=== PATIENT | female | born 1975 | race Caucasian/White ===

== ENCOUNTER 2020-12-11 11:10 | Emergency (ER) | payer MEDICAID ==
[~2020-12-11] VITALS: Ht 165.1 cm; Wt 80.0 kg
[2020-12-11] MEDS ORDERED: ipratropium 0.5 MG/2.5ML nebule IH ONE (11:30)
[2020-12-11] MEDS ORDERED: methylPREDNISolone sod succ 125mg/2ml vial IV ONE (11:30)
[2020-12-11] MEDS ORDERED: magnesium 2GM in 50ml NS 50 ML IV ONE (11:30)
[2020-12-11] MEDS ORDERED: normal saline 1000ML IV soln IVB ONE (11:30)
[2020-12-11] MEDS ORDERED: albuterol 2.5 MG/3 ML nebule NEB ONE ×2 (11:30→12:50)
[2020-12-11] MEDS ORDERED: albuterol 2.5 MG/3 ML nebule CONTNEB PRN ×2 (11:30→12:50)
[2020-12-11] MEDS ORDERED: methylPREDNISolone sod succ 125mg/2ml vial ONE (11:51)
[2020-12-11 12:24] LABS: BASOPHILS % (AUTO) 0.5 % (0-1); EOSINOPHILS # (AUTO) 0.7 X10'3 (0-0.9); EOSINOPHILS % (AUTO) 8.3 % (0-6); HEMATOCRIT 39.8 % (35.0-45.0); HEMOGLOBIN 13.7 g/dl (12.0-16.0); LYMPHOCYTES # (AUTO) 2.6 X10'3 (1.1-4.8); LYMPHOCYTES % (AUTO) 32.5 % (21-51); MEAN CORPUSCULAR HEMOGLOBIN 29.8 PG (27.0-31.0); MEAN CORPUSCULAR HGB CONC 34.5 g/dL (33.0-36.5); MEAN CORPUSCULAR VOLUME 86.4 FL (78-98); MEAN PLATELET VOLUME 9.1 FL (7.4-10.4); MONOCYTES # (AUTO) 0.6 X10'3 (0-0.9); MONOCYTES % (AUTO) 7.7 % (2-12); NEUTROPHILS # (AUTO) 4.1 X10'3 (1.8-7.7); PLATELET COUNT 304 X10'3 (140-440); RED BLOOD COUNT 4.61 X10'6 (4.20-5.60); RED CELL DISTRIBUTION WIDTH 13.4 % (11.5-14.5)
[2020-12-11 12:33] LABS: ALANINE AMINOTRANSFERASE 22 U/L (12-78); ALBUMIN 4.1 G/DL (3.4-5.0); ALBUMIN/GLOBULIN RATIO 1.1 (1.1-1.5); ALKALINE PHOSPHATASE 96 IU/L (46-116); ANION GAP 15 (8-16); ASPARTATE AMINO TRANSFERASE 20 U/L (10-37); BILIRUBIN,TOTAL 0.5 MG/DL (0.1-1.0); BLOOD UREA NITROGEN 15 MG/DL (7-18); CALCIUM 9.3 MG/DL (8.5-10.1); CHLORIDE 106 MMOL/L (99-107); GLUCOSE 82 MG/DL (70-104); SODIUM 145 MMOL/L (135-145); TOTAL CARBON DIOXIDE 24.5 MMOL/L (24-32)
[2020-12-11 12:36] LABS: BUN/CREATININE RATIO 16.3 (6.6-38.0); CREATININE 0.92 MG/DL (0.40-0.90); eGFR 65 ML/MIN
--- NOTE | 2020-12-11 12:36 | NUR ---
PT FINISHING CONT NEB AT THIS TIME, REPORTS FEELING MUCH BETTER. AIR MVMT TO ALL LUNG MCCLELLAN, STILL WITH BASILAR WHEEZING. RT WILL BE BACK SOON TO REASSESS PER PHONE CALL WITH RT MARLENE
--- NOTE | 2020-12-11 12:56 | NUR ---
RT AT BEDSIDE
[2020-12-11] MEDS ORDERED: ALBU18HF2 INH (14:01)
[2020-12-11] MEDS ORDERED: FLO44IN IH (14:01)
[2020-12-11] MEDS ORDERED: PRED20TA PO (14:01)
[2020-12-11 14:36] VITALS: BP 109/65
== END 2020-12-11 14:39 | disposition home or self-care (01) ==
LOC: ER 11:11
DX: J45.901 Unspecified asthma with (acute) exacerbation (principal)
CPT/HCPCS: 36415; 71045; 80053; 85025; 93005; 94640; 94760; 96365; 96366; 96375; 99285; A7015; J2930; J3475; J7030

== ENCOUNTER 2022-06-15 10:05 | Emergency (ER) | payer MEDICAID ==
[~2022-06-15] VITALS: Ht 157.5 cm; Wt 62.0 kg
[~2022-06-15 10:05] MED LIST: ALBU18HF2 INH; FLO44IN IH
[2022-06-15 10:14] VITALS: BP 111/67
[2022-06-15] MEDS ORDERED: LIDO20SO16 PO (11:02)
[2022-06-15] MEDS ORDERED: PENI500T2 PO (11:04)
== END 2022-06-15 11:25 | disposition home or self-care (01) ==
LOC: ER 10:06
DX: J02.0 Streptococcal pharyngitis (principal)
CPT/HCPCS: 87880; 99283

== ENCOUNTER 2022-07-15 10:15 | Emergency (ER) | payer MEDICAID ==
[~2022-07-15] VITALS: Ht 157.5 cm; Wt 64.5 kg
[~2022-07-15 10:15] MED LIST changes: +LIDO20SO16 PO; +PENI500T2 PO
[2022-07-15] MEDS ORDERED: albuterol 2.5 MG/3 ML nebule NEB ONE (10:20)
[2022-07-15] MEDS ORDERED: methylPREDNISolone sod succ 125mg/2ml vial IV ONE (10:25)
[2022-07-15] MEDS ORDERED: FLUT1BLS3 INH (11:28)
[2022-07-15] MEDS ORDERED: PRED10TA23 PO (11:28)
[2022-07-15 11:57] VITALS: BP 115/75
== END 2022-07-15 12:05 | disposition home or self-care (01) ==
LOC: ER 10:16
DX: J45.901 Unspecified asthma with (acute) exacerbation (principal); R05.9 Cough, unspecified
CPT/HCPCS: 94640; 96374; 99283; J2930

== ENCOUNTER 2022-09-03 10:49 | Emergency (ER) | payer MEDICAID ==
[~2022-09-03] VITALS: Ht 157.5 cm; Wt 65.0 kg
[~2022-09-03 10:49] MED LIST changes: +FLUT1BLS3 INH; -PENI500T2 PO
--- NOTE | 2022-09-03 11:08 | NUR ---
SBAR TO DOMINIQUE PADGETT.
[2022-09-03] MEDS ORDERED: albuterol 2.5 MG/3 ML nebule CONTNEB PRN (11:10)
[2022-09-03] MEDS ORDERED: dexamethasone sod phosphate 10mg/ml inj IM STA (11:43)
[2022-09-03] MEDS ORDERED: FLUT1BLS3 INH (11:45)
[2022-09-03] MEDS ORDERED: PRED20TA PO (11:45)
[2022-09-03] MEDS ORDERED: ALBU18HF2 INH (11:45)
[2022-09-03 12:12] VITALS: BP 123/71
== END 2022-09-03 12:29 | disposition home or self-care (01) ==
LOC: ER 10:49
DX: J45.901 Unspecified asthma with (acute) exacerbation (principal)
CPT/HCPCS: 94640; 94644; 96372; 99285; J1100; 94760; A7015

== ENCOUNTER 2023-01-08 18:09 | Emergency (ER) | payer MEDICAID ==
[~2023-01-08] VITALS: Ht 157.5 cm; Wt 66.4 kg
[2023-01-08 18:34] VITALS: TEMP 98.7
[2023-01-08] MEDS ORDERED: ipratropium 0.5 MG/2.5ML nebule IH ONE (18:35)
[2023-01-08] MEDS ORDERED: methylPREDNISolone sod succ 125mg/2ml vial IV ONE (18:35)
[2023-01-08] MEDS ORDERED: albuterol 2.5 MG/3 ML nebule CONTNEB PRN (18:35)
[2023-01-08 18:39] LABS: BASOPHILS % (AUTO) 0.2 % (0-1); EOSINOPHILS # (AUTO) 0.9 X10'3 (0-0.9); EOSINOPHILS % (AUTO) 9.8 % (0-6); HEMATOCRIT 38.8 % (35.0-45.0); HEMOGLOBIN 12.9 g/dl (12.0-16.0); LYMPHOCYTES # (AUTO) 2.9 X10'3 (1.1-4.8); LYMPHOCYTES % (AUTO) 30.9 % (21-51); MEAN CORPUSCULAR HEMOGLOBIN 28.8 PG (27.0-31.0); MEAN CORPUSCULAR HGB CONC 33.4 g/dL (33.0-36.5); MEAN CORPUSCULAR VOLUME 86.2 FL (78-98); MEAN PLATELET VOLUME 7.5 FL (7.4-10.4); MONOCYTES # (AUTO) 0.9 X10'3 (0-0.9); MONOCYTES % (AUTO) 9.4 % (2-12); NEUTROPHILS # (AUTO) 4.6 X10'3 (1.8-7.7); NEUTROPHILS % (AUTO) 49.7 % (42-75); PLATELET COUNT 340 X10'3 (140-440); RED CELL DISTRIBUTION WIDTH 14.4 % (11.5-14.5); WHITE BLOOD COUNT 9.3 X10'3 (4.5-11.0)
[2023-01-08] MEDS ORDERED: magnesium 2GM in 50ml NS 50 ML IV ONE (18:40)
[2023-01-08 18:43] VITALS: PULSE 90; RESP 22; O2SAT 95
[2023-01-08] MEDS ORDERED: PRED20TA PO (18:56)
[2023-01-08 18:59] LABS: ALANINE AMINOTRANSFERASE 17 U/L (12-78); ALBUMIN 3.8 G/DL (3.4-5.0); ALKALINE PHOSPHATASE 85 IU/L (46-116); ANION GAP 9 (8-16); ASPARTATE AMINO TRANSFERASE 28 U/L (10-37); BILIRUBIN,TOTAL 0.3 MG/DL (0.1-1.0); BLOOD UREA NITROGEN 19 MG/DL (7-18); BUN/CREATININE RATIO 17.1 (10.0-20.0); CHLORIDE 103 MMOL/L (99-107); CREATININE 1.11 MG/DL (0.40-0.90); GLUCOSE 75 MG/DL (70-104); POTASSIUM 3.6 MMOL/L (3.5-5.1); SODIUM 137 MMOL/L (135-145); TOTAL CARBON DIOXIDE 25.5 MMOL/L (24-32); TOTAL PROTEIN 7.6 G/DL (6.4-8.2); eCRCL 48 ML/MIN; eGFR 52 ML/MIN
[2023-01-08 19:56] VITALS: PULSE 74; RESP 13; O2SAT 98
[2023-01-08 20:36] VITALS: BP 116/72; PULSE 79; RESP 12; O2SAT 95
== END 2023-01-08 20:37 | disposition home or self-care (01) ==
LOC: ER 18:10
DX: J45.901 Unspecified asthma with (acute) exacerbation (principal); F32.9 Major depressive disorder, single episode, unspecified; Z79.899 Other long term (current) drug therapy
CPT/HCPCS: 36415; 71045; 80053; 83880; 84484; 85025; 93005; 94640; 94644; 96365; 96375; 99285; J2930; J3475; 94760; A7015

== ENCOUNTER 2023-01-25 16:37 | Emergency (ER) | payer MEDICAID ==
[~2023-01-25] VITALS: Ht 157.5 cm; Wt 67.7 kg
[~2023-01-25 16:37] MED LIST changes: +PRED20TA PO
[2023-01-25] MEDS ORDERED: HYDROcodone/acetaminophen 10/325mg tab PO ONE (19:50)
[2023-01-25] MEDS ORDERED: diazepam inj 5 MG/ML inj. IM ONE (20:45)
[2023-01-25] MEDS ORDERED: ketorolac trometh inj. 60 MG/2 ML VIAL IM ONE (20:45)
[2023-01-25] MEDS ORDERED: CYCL-1 PO (20:47)
[2023-01-25] MEDS ORDERED: NAPR-56 PO (20:47)
[2023-01-25 21:04] VITALS: BP 134/79; PULSE 58; RESP 16; TEMP 98.6; O2SAT 99
== END 2023-01-25 21:05 | disposition home or self-care (01) ==
LOC: ER 16:37
DX: S39.012A Strain of muscle, fascia and tendon of lower back, initial encounter (principal); X58.XXXA Exposure to other specified factors, initial encounter; Y93.89 Activity, other specified; Y92.89 Other specified places as the place of occurrence of the external cause; Y99.8 Other external cause status
CPT/HCPCS: 96372; 99284; J1885; J3360

== ENCOUNTER 2024-06-01 11:47 | Emergency (ER) | payer MEDICAID, OTHER ==
[~2024-06-01] VITALS: Ht 165.1 cm; Wt 71.3 kg
[~2024-06-01 11:47] MED LIST changes: +CYCL-1 PO; -PRED20TA PO
[2024-06-01] MEDS ORDERED: [UNRECOGNIZED DRUG - CODE] LEFT EAR (12:17)
[2024-06-01] MEDS ORDERED: AMOX500C2 PO (12:17)
[2024-06-01] MEDS ORDERED: ACET15SO14 LEFT EAR (12:17)
[2024-06-01 12:32] VITALS: BP 112/77; PULSE 65; RESP 16; TEMP 98.2; O2SAT 98
== END 2024-06-01 12:34 | disposition home or self-care (01) ==
LOC: ER 11:47
DX: H60.91 Unspecified otitis externa, right ear (principal); H66.91 Otitis media, unspecified, right ear; J45.909 Unspecified asthma, uncomplicated; F32.A Depression, unspecified; Z79.899 Other long term (current) drug therapy
CPT/HCPCS: 99283